=== PATIENT | female | born 1970 | race Caucasian/White ===

== ENCOUNTER 2018-01-31 07:18 | Day surgery (SDC) | payer BC ==
[~2018-01-31] VITALS: Ht 162.6 cm; Wt 93.0 kg
[~2018-01-31 07:18] MED LIST: ADDERALL XR 2020 MG PO; ADULT ONE DAI200 MCG PO; ALEVE220 MG PO; CELEXA10 MG PO; EXCEDRIN MIGRA1 EACH PO; FLONASE ALLERG9.9 ML BOTH NARES; IMITREX50 MG PO; IRON325 M1 PO; LAMICTAL150 M1 PO; MEGACE20 MG PO; PRILOSEC40 MG PO; VALTREX50 MG/ML PO; ZANTAC150 MG PO; [UNRECOGNIZED DRUG - OTHER] PO
[2018-01-31 07:57] VITALS: BP 123/65
[2018-01-31] MEDS ORDERED: IBUPROFEN800 MG PO (09:21)
[2018-01-31] MEDS ORDERED: ENDOCET 5-3251 EACH PO (09:21)
[2018-01-31 12:44] VITALS: BP 126/80
[2018-01-31 14:00] VITALS: BP 119/64
== END 2018-01-31 14:05 | disposition home or self-care (01) ==
LOC: SDC 07:18
DX: N92.0 Excessive and frequent menstruation with regular cycle (principal); N85.4 Malposition of uterus; N88.2 Stricture and stenosis of cervix uteri; Z53.09 Procedure and treatment not carried out because of other contraindication; F31.9 Bipolar disorder, unspecified; Z88.1 Allergy status to other antibiotic agents; Z91.040 Latex allergy status
CPT/HCPCS: 88305; J0131; J1100; J1170; J1885; J2250; J2405; J3010; J7120; Q0175

== ENCOUNTER 2018-02-07 08:31 | Day surgery (SDC) | payer BC ==
[~2018-02-07] VITALS: Ht 162.6 cm; Wt 93.5 kg
[~2018-02-07 08:31] MED LIST changes: +ENDOCET 5-3251 EACH PO; +FEOSOL325 MG PO; +IBUPROFEN800 MG PO; +NEURONTIN100 MG PO
[2018-02-07 09:01] VITALS: BP 132/58
[2018-02-07 13:49] VITALS: BP 115/58
== END 2018-02-07 14:05 | disposition home or self-care (01) ==
LOC: SDC 08:31
PROC: 0W9G4ZZ Drainage of Peritoneal Cavity, Percutaneous Endoscopic Approach (ICD-10-PCS; principal; 2018-02-07)
DX: N99.840 Postprocedural hematoma of a genitourinary system organ or structure following a genitourinary system procedure (principal); N85.4 Malposition of uterus; K66.0 Peritoneal adhesions (postprocedural) (postinfection); Z98.890 Other specified postprocedural states
CPT/HCPCS: J0690; J1100; J1170; J1200; J1885; J2250; J2405; J2710; J3010; J7643; Q0175